=== PATIENT | female | born 1990 | race Caucasian/White ===

== ENCOUNTER → 2016-11-09 | Outpatient (CLI) | payer BC ==
[~2016-11-09] MED LIST: ASPIRIN325 MG PO; LEXAPRO10 MG PO; MOTRIN800 MG PO; PERCOCET 5-3251 EACH PO; PRENATAL 1+1)(P1 TAB PO; PROTONIX40 MG PO; THERA-VITE W/ B1 TAB PO; ULTRAM50 MG PO
== END | disposition disaster alternative care site (69) ==
LOC: GLAB 08:00
DX: R73.09 Other abnormal glucose (principal)

== ENCOUNTER 2017-02-03 06:34 | Inpatient (IN) | payer BC ==
[~2017-02-03] VITALS: Ht 165.1 cm; Wt 71.0 kg
--- NOTE | ~2017-02-03 | OR ---
PATIENT'S NAME: LEIDA FISHER [facility] AGE: 26 Y [address] ROOM: [place] [id number] LOCATION: [facility]BS ADMIT DATE: 02/03/2017 OR/Procedure Report DISCHARGE DATE: FAMILY PHYSICIAN: Mehdi Conrad MD ATTENDING PHYSICIAN: Rob Vuong SURGEON: Rob Vuong MD FREIGHT COORDINATOR: No assistants. DATE OF PROCEDURE: 02/03/2017 PREOPERATIVE DIAGNOSIS: Term intrauterine , successful induction of labor. POSTOPERATIVE DIAGNOSIS: Term intrauterine , successful induction of labor. PROCEDURE: Vaginal delivery and midline episiotomy repair. ANESTHESIA: Epidural. ESTIMATED BLOOD LOSS: 100 mL. CLINICAL INDICATION: Leida Fisher is a 26-year-old , white female, 2, para 1, at term. She desired to undergo a social induction, this was begun earlier this morning and successful in bringing about complete cervical dilatation. She pushed effectively. FINDINGS: Delivery of a viable 7-pound 10-ounce female infant, score 8 at one minute, 9 at five minutes. umbilical and arterial cord blood gases are pending at the time of dictation. DESCRIPTION OF PROCEDURE: The patient was left in Labor and Delivery room, prepped and draped in the usual fashion. Midline episiotomy was performed. She would deliver a viable 7-pound 10-ounce female infant over the midline episiotomy without extension. The umbilical cord was doubly clamped, the intervening segments cut. Infant was handed off to the mother and later to awaiting nursing services. umbilical and arterial cord blood was obtained for blood gas analysis and routine studies respectively. Placenta delivered spontaneously intact with 3 vessels. Exploration of the cervix and vaginal sidewalls noted them to be intact. The episiotomy was repaired using 3-0 Vicryl suture in the usual fashion. Sponge, needle, and instrument counts were correct. The patient tolerated the procedure well and remained in Labor and Delivery Room in good condition, as did the . PATIENT'S NAME: LEIDA FISHER [facility] AGE: 26 Y [address] ROOM: [place] [id number] LOCATION: [facility] ADMIT DATE: 02/03/2017 OR/Procedure Report DISCHARGE DATE: FAMILY PHYSICIAN: Mehdi Conrad MD ATTENDING PHYSICIAN: Rob Vuong ROB VUONG MD DHW/modl /[id number] d: 02/03/17 1926 t: 02/05/17 1042, OPERATIVE SUMMARY
[~2017-02-03 06:34] MED LIST changes: -ASPIRIN325 MG PO; -MOTRIN800 MG PO; -PERCOCET 5-3251 EACH PO; -PRENATAL 1+1)(P1 TAB PO
[2017-02-03] MEDS ORDERED: PRENATAL 1+1)(P1 TAB PO (07:26)
[2017-02-03] MEDS ORDERED: ASPIRIN325 MG PO (07:27)
[2017-02-03 08:25] LABS: BASOPHIL % 0.5 %; EOSINOPHIL % 0.6 %; HEMATOCRIT 33.4 % (33.0-46.0); HEMOGLOBIN 11.4 g/dL (11.0-15.0); IMMATURE GRANULOCYTE % 0.3 %; LYMPHOCYTE # 1.8 K/uL (0.8-4.0); LYMPHOCYTE % 27.9 %; MCH 29.2 pg (27.0-34.0); MCHC 34.1 gm/dL (32.0-36.5); MCV 85.6 fl (83.0-98.0); MONOCYTE # 0.4 K/uL (0.0-1.0); MONOCYTE % 6.4 %; MPV 11.7 fl (9.4-12.4); NEUTROPHIL % 64.3 %; NRBC % 0 /100WBC (0-0.00); PLATELET COUNT 206 K/uL (150-450); RDW-CV 12.7 % (11.9-14.6); WBC 6.3 K/uL (4.0-11.0)
[2017-02-03 14:36] LABS: BICARBONATE 25.1 mmol/L (18.0-23.0); PCO2 53 mmHg (35-45); PO2 16 mmHg (80-90)
[2017-02-04 04:57] LABS: BASOPHIL % 0.3 %; EOSINOPHIL # 0.1 K/uL (0.0-0.5); EOSINOPHIL % 0.7 %; HEMATOCRIT 29.6 % (33.0-46.0); HEMOGLOBIN 10.1 g/dL (11.0-15.0); IMMATURE GRANULOCYTE % 0.2 %; LYMPHOCYTE # 2.1 K/uL (0.8-4.0); LYMPHOCYTE % 20.6 %; MCHC 34.1 gm/dL (32.0-36.5); MCV 85.1 fl (83.0-98.0); MONOCYTE # 0.6 K/uL (0.0-1.0); MONOCYTE % 6.3 %; MPV 11.1 fl (9.4-12.4); NEUTROPHIL # (ANC) 7.2 K/uL (1.8-7.8); NEUTROPHIL % 71.9 %; NRBC % 0 /100WBC (0-0.00); PLATELET COUNT 172 K/uL (150-450); RBC 3.48 M/uL (3.50-5.00); RDW-CV 12.6 % (11.9-14.6)
--- NOTE | 2017-02-04 05:57 | NUR ---
Significant Event: independent with cares, vss. motrin last given at 0240 with relief plans home today Follow up:
[2017-02-04] MEDS ORDERED: MOTRIN800 MG PO (11:02)
[2017-02-04] MEDS ORDERED: PERCOCET 5-3251 EACH PO (11:02)
== END 2017-02-04 15:20 | disposition disaster alternative care site (69) | DRG 775 ==
LOC: GOBM 06:34 → GOBS 06:34 → GOBM 06:35 → GOBS 06:35
PROVIDERS: ADMIT Obstetrics & Gynecology
PROC: 10907ZC Drainage of Amniotic Fluid, Therapeutic from Products of Conception, Via Natural or Artificial Opening (ICD-10-PCS; principal; 2017-02-03)
PROC: 10E0XZZ Delivery of Products of Conception, External Approach (ICD-10-PCS; principal; 2017-02-03)
PROC: 3E033VJ Introduction of Other Hormone into Peripheral Vein, Percutaneous Approach (ICD-10-PCS; principal; 2017-02-03)
PROC: 4A1HX4Z Monitoring of Products of Conception, Cardiac Electrical Activity, External Approach (ICD-10-PCS; principal; 2017-02-03)
DX: O70.9 Perineal laceration during delivery, unspecified (principal); F17.210 Nicotine dependence, cigarettes, uncomplicated; Z3A.39 39 weeks gestation of pregnancy; Z37.0 Single live birth; O99.333 Smoking (tobacco) complicating pregnancy, third trimester
CPT/HCPCS: J2001; J2540; J2590; J3010; J7120